=== PATIENT | female | born 1985 | race Caucasian/White ===

== ENCOUNTER 2016-09-25 00:31 | Emergency (ER) | payer MEDICAID ==
[~2016-09-25] VITALS: Ht 162.6 cm; Wt 84.1 kg
[~2016-09-25 00:31] MED LIST: AMOXICILLIN 50500 MG PO; MOTRIN 600600 MG/TAB PO; NO HOME MEDICATIONS; NORCO 325 MG-51 TAB PO; PERCOCET 325 MG1 TA2 PO; PRENATAL1 TA1 PO; hydrocodone
[2016-09-25 00:35] VITALS: TEMP 97.7
[2016-09-25] MEDS ORDERED: CARDIZEM 30MG T30 MG PO (00:41)
[2016-09-25 00:54] LABS: BASO # 0.1 (0.0-0.2); BASO % 0.9 % (0.0-2.0); EOS # 0.3 (0.0-0.7); GRAN # 7.8 (1.4-6.5); GRAN % 59.4 % (42.2-75.2); HEMATOCRIT 46.5 % (37.0-47.0); HEMOGLOBIN 15.7 g/dl (12.5-16.0); LYMPH # 4.2 (1.2-3.4); LYMPH % 31.7 % (20.0-51.0); MEAN CELL VOLUME 90 fl (80.0-100.0); MEAN CORPUSCULAR HEMOGLOBIN 30 pg (27.0-31.0); MEAN CORPUSCULAR HGB CONC 34 g/dl (33.0-37.0); MEAN PLATELET VOLUME 8.7 fl (7.4-10.4); MONO # 0.7 (0.1-0.6); MONO % 5.6 % (1.7-9.3); PLATELET COUNT 380 K/mm3 (130-400); RED BLOOD COUNT 5.16 M/mm3 (4.10-5.30); REDCELL DISTRIBUTION WIDTH-CV 12.1 % (11.5-14.5); WHITE BLOOD COUNT 13.1 K/mm3 (4.8-10.8)
[2016-09-25] MEDS ORDERED: CARTIA XT120 MG PO (00:57)
[2016-09-25 01:03] LABS: ADJUSTED CALCIUM 9.2 mg/dL (8.4-10.2); ALANINE AMINOTRANSFERASE 36 U/L (9-52); ALBUMIN 4.4 gm/dL (3.5-5.0); ALKALINE PHOSPHATASE 66 U/L (50-136); ANION GAP 10 mmol/L (7-16); BILIRUBIN,TOTAL 0.5 mg/dL (0.0-1.0); BLOOD UREA NITROGEN 9 mg/dL (7-17); CALCIUM 9.5 mg/dL (8.4-10.2); CARBON DIOXIDE 25 mmol/L (22-30); CHLORIDE 104 mmol/L (98-107); CREATINE KINASE 137 U/L (30-135); CREATININE, serum 0.74 mg/dL (0.52-1.25); GLUCOSE 97 mg/dL (74-106); POTASSIUM 3.3 mmol/L (3.4-5.0); SODIUM 138 mmol/L (137-145); TOTAL PROTEIN 7.7 gm/dL (6.4-8.2)
[2016-09-25 01:25] LABS: TROPONIN-I < 0.012 ng/mL (0.000-0.034)
[2016-09-25 02:33] VITALS: BP 113/66; PULSE 105
== END 2016-09-25 02:37 | disposition home or self-care (01) ==
LOC: COL.ER 00:31
PROVIDERS: Emergency Medicine
DX: R55 Syncope and collapse (principal); R00.0 Tachycardia, unspecified; F17.210 Nicotine dependence, cigarettes, uncomplicated
CPT/HCPCS: J7030

== ENCOUNTER 2019-07-14 08:18 | Emergency (ER) | payer SELFPAY ==
[~2019-07-14] VITALS: Ht 162.6 cm; Wt 89.1 kg
[~2019-07-14 08:18] MED LIST changes: +CARDIZEM 30MG T30 MG PO; +CARTIA XT120 MG PO
[2019-07-14 08:21] VITALS: BP 140/73
[2019-07-14 08:53] VITALS: PULSE 110; TEMP 97.2
== END 2019-07-14 08:53 | disposition home or self-care (01) ==
LOC: COL.ER 08:18
DX: M77.9 Enthesopathy, unspecified (principal); F17.210 Nicotine dependence, cigarettes, uncomplicated; Z98.890 Other specified postprocedural states